=== PATIENT | male | born 1950 | race Caucasian/White ===

== ENCOUNTER 2017-06-30 13:15 | Outpatient (CLI) | payer MEDICARE, OTHER ==
--- NOTE | 2017-06-30 15:36 | MRI ---
EXAM: BRAIN MRI WITH AND WITHOUT CONTRAST 06/30/17 COMPARISON: 02/11/16. HISTORY: Brain tumor. Followup exam. Patient has a previous history of radiation. COMPARISON: 02/11/16, 09/26/15. TECHNIQUE: Brain MRI is performed with and without intravenous gadolinium administration. Multisequential, multi planar imaging is performed. FINDINGS: No hemorrhage on the axial gradient echo sequence. No periaortic mass, mass effect, or midline shift . Brain volume is age appropriate. Cortical smith-white matter differentiation is preserved. Ventricles and sulci are patent and asymmetric. Central arterial flow voids are maintained. No restri cted diffusion. Minimal mucosal thickening involving the paranasal sinuses. Adequate mastoid air cell aeration. Minimal white matter hyperintensity in the axial T2 and FLAIR sequence likely due to chronic small ve ssel ischemic change. No pathologic enhancement of the brain parenchyma. Stable 4 mm enhancement in the distal aspect of the left internal auditory canal. There is evidence o f a left sided vestibular schwannoma. IMPRESSION: Stable left sided vestibular schwannoma. POS: [facility]
== END 2017-06-30 13:16 | disposition home or self-care (01) ==
LOC: TBSIIMAG 13:15
PROVIDERS: ATTEND Neurological Surgery
DX: D49.6 Neoplasm of unspecified behavior of brain (principal); D33.3 Benign neoplasm of cranial nerves
CPT/HCPCS: 70553

== ENCOUNTER 2017-09-23 10:05 | Emergency (ER) | payer MEDICARE, OTHER ==
[2017-09-23] MEDS ORDERED: Lidocaine 1% w/Epinephrine 1:100K 30 ML VIAL ONE (10:21)
[2017-09-23] MEDS ORDERED: Adacel (T-DAP) 0.5 ML VIAL ONE (10:38)
== END 2017-09-23 10:57 | disposition home or self-care (01) ==
LOC: SCSER 10:05
DX: S61.412A Laceration without foreign body of left hand, initial encounter (principal); E03.9 Hypothyroidism, unspecified; E78.5 Hyperlipidemia, unspecified; I10 Essential (primary) hypertension; Z79.899 Other long term (current) drug therapy; W26.9XXA Contact with unspecified sharp object(s), initial encounter
CPT/HCPCS: 12001; 90471; 90715; J2001

== ENCOUNTER 2017-11-18 10:22 | Outpatient (CLI) | payer MEDICARE, OTHER ==
[2017-11-18 11:41] LABS: #Eosinphils 0.2 thou/uL (0.0-0.7); #Lymphocytes 2.2 thou/uL (1.20-3.40); #Monocytes 0.5 thou/uL (0.11-0.59); #Neutrophils 4.1 thou/uL (1.40-6.50); %Basophils 0.7 % (0.0-1.0); %Eosinophils 3.3 % (0.0-10.0); %Lymphocytes 30.9 % (21.0-51.0); %Monocytes 6.6 % (0.0-10.0); %Neutrophils 58.5 % (42.0-75.0); Hemoglobin 16.7 g/dL (14.0-18.0); Mean Corpuscular HGB CONC 34.3 g/dL (32.0-36.0); Mean Corpuscular Hemoglobin 32.3 pg (27.0-31.0); Mean Corpuscular Volume 94.2 fl (80.0-94.0); Mean Platelet Volume 6.5 fL (7.4-10.4); Platelet Count 248 thou/uL (130-400); RBC Distribution Width 12.2 % (11.5-14.5); Red Blood Cell (RBC) Count 5.15 mill/uL (4.70-6.10); White Blood Cell (WBC) Count 7.1 thou/uL (4.8-10.8)
== END 2017-11-18 10:23 | disposition home or self-care (01) ==
LOC: LABBT 10:22
PROVIDERS: ATTEND Orthopaedic Surgery Hand Surgery
DX: Z01.812 Encounter for preprocedural laboratory examination (principal); G56.20 Lesion of ulnar nerve, unspecified upper limb
CPT/HCPCS: 85025; 85652; 93005; 93010

== ENCOUNTER 2017-11-23 05:49 | Day surgery (SDC) | payer MEDICARE, OTHER ==
[2017-11-18 10:51] VITALS: BMI 26.9
[2017-11-23] MEDS ORDERED: Fentanyl 100 MCG/2 ML VIAL ONE (06:46)
[2017-11-23] MEDS ORDERED: HYDROmorphone 0.5 MG/0.5 ML SYRINGE ONE (06:46)
[2017-11-23] MEDS ORDERED: Bupivacaine PF 0.5% 30 ML VIAL ONE (06:48)
[2017-11-23] MEDS ORDERED: Bacitracin Zinc Ointment 30 gm TUBE ONE (06:48)
[2017-11-23] MEDS ORDERED: Betamet Acet/Betamet Na Ph 30 MG/5 ML VIAL ONE ×2 (06:48→07:43)
[2017-11-23] MEDS ORDERED: Dexamethasone 20 MG/5 ML VIAL ONE (06:51)
[2017-11-23] MEDS ORDERED: Metoclopramide HCl 10 MG/2 ML VIAL ONE (06:51)
[2017-11-23] MEDS ORDERED: PROPOFOL 200 MG/20 ML VIAL ONE (06:51)
[2017-11-23] MEDS ORDERED: Ondansetron HCl/PF 4 MG/2 ML Vial ONE (06:51)
[2017-11-23] MEDS ORDERED: Ketorolac Tromethamine 30 MG/ML VIAL ONE ×2 (06:51→10:19)
[2017-11-23] MEDS ORDERED: Lidocaine 1% PF 5 ML VIAL ONE (06:51)
[2017-11-23] MEDS ORDERED: CEFAZOLIN/Water 2 GM/20 ML SYRINGE ONE (06:58)
--- NOTE | 2017-11-23 16:34 | OP ---
PREOPERATIVE DIAGNOSES: 1. Left carpal tunnel syndrome. 2. Left cubital tunnel syndrome. FINDINGS: 1. Severe compression with flattening of 2.5 cm area of the ulnar nerve at just proximal cubital peter herb and underneath the flexor head. 2. 1 cm at the transcarpal ligament of the median nerve within the wrist. 3. Very thick olecranon bursa with straw-colored fluid. PROCEDURES PERFORMED: 1. Radical left elbow olecranon bursa. 2. Left ulnar nerve neuroplasty with submuscular transposition of the elbow, forearm and distal arm. 3. Acute carpal tunnel release. TOURNIQUET TIME: 90 minutes. INJECTABLE: Total of 30 mL 0.5%, 10 at the carpal tunnel site and 20 at the cubital tunnel site. SPECIMEN: Bursa to the lab. ESTIMATED BLOOD LOSS: 10 mL. COMPLICATIONS: None. INDICATIONS: A very dense cubital tunnel and carpal tunnel by exam with a stage II Fraser changes a nd very debilitating nighttime pain that responded to conservative treatment for over 9 months. DESCRIPTION OF PROCEDURE: After successful general LMA technique, the limb was prepped and draped. We then outlined the incision, standard carpal tunnel release incision, in line with Almendarez's cardina l line distally and four proximally, 5 mm distal to the volar flexion crease and medial lateral in li ne with the ring finger. We then outlined a midline incision that had a zigzag medially to avoid the olecranon tip. We injected each side with 10 mL before made incision, applied a sterile well-padded tourniquet high in the arm and then exsanguinated the limb. Tourniquet was inflated to 250 mmHg. First carpal tunnel was approached with standard incision listed above, carried through the skin and subcutaneous tissue. We identified the fascia just ulnar to the palmaris longus, and from the mid po rtion distally with self-retaining retractors. We released the transverse carpal ligament and spared the median nerve motor branch, which was a type 1 takeoff and visualized the primary sensory branche s, which were all intact. We then made a release using a combination of [place] blade and tenotomy sc issor from this point proximally through direct visualization as well. Placed 2 mL of Celestone here , closed with interrupted 4-0 nylon. We proceeded to the cubital tunnel site. We then used an incision that described above with me as outlined. Midline slightly medial at the ol ecranon tip care to skin and subcutaneous tissues, which were dissected to reach the medial epicondyl e. I immediately could see very thick olecranon bursa. Once we did identify ulnar nerve, we did a r adical olecranon bursectomy. There was straw colored fluid inside almost a 2 mm thick bursa. Then, we identified the ulnar nerve as high in the incision as possible, then began to release of the fasci a. Once we got to the true ligament over the cubital tunnel, 1 cm proximal to it indeed, we noticed flattening of the nerve about 50% loss of diameter. This continued through the canal into the flexor carpi ulnaris heads and then after we got past the branches, it flattened and dissipated. The nerve was completely released. We then dissected the nerve free from the muscle belly using one set of ve ssel clips to bring a vessel with it and once we had reached a point where it could be transposed ant erior to the medial epicondyle, we let it go back and is being rested, then we released intermuscular septum over 10 cm area from its insertion onto the posterior aspect of the medial epicondyle. We ma de a Z-lengthening of the flexor pronator origin/group, and then transposed the nerve into this area. I placed a 3 mL of Celestone along the nerve in this region. There was no undue tension. We close d it with interrupted #1 Ethibond using OS-4 needle in a [id number] pattern x6 stitches. There was no instability here to include no violation of the ulnar collateral ligament. The nerve was well protected and did not show tension through full passive range. We then closed the incision with a running 3-0 Monocryl, placed Steri-Strips, placed bulky dressing o n both sites, released the tourniquet, had excellent color and no bleeding. Splint was applied with the elbow at 75-80 degrees of flexion and the patient went to the operating room without evidence of anesthetic or operative complication.
== END 2017-11-23 12:05 | disposition home or self-care (01) ==
LOC: SDC 05:49
PROVIDERS: ATTEND Orthopaedic Surgery Hand Surgery
PROC: 01N50ZZ Release Median Nerve, Open Approach (ICD-10-PCS; principal; 2017-11-23)
PROC: 0MB40ZZ Excision of Left Elbow Bursa and Ligament, Open Approach (ICD-10-PCS; 2017-11-23)
PROC: 01N40ZZ Release Ulnar Nerve, Open Approach (ICD-10-PCS; 2017-11-23)
DX: G56.02 Carpal tunnel syndrome, left upper limb (principal); G56.22 Lesion of ulnar nerve, left upper limb; M70.22 Olecranon bursitis, left elbow; M75.20 Bicipital tendinitis, unspecified shoulder; M77.11 Lateral epicondylitis, right elbow; M19.011 Primary osteoarthritis, right shoulder; I10 Essential (primary) hypertension; E78.00 Pure hypercholesterolemia, unspecified; E03.9 Hypothyroidism, unspecified; Z79.899 Other long term (current) drug therapy
CPT/HCPCS: 88304; 96372; J0131; J0702; J1100; J1170; J1885; J2001; J2405; J2704; J2765; J3010; S0020

== ENCOUNTER 2018-04-11 11:44 | Outpatient (CLI) | payer MEDICARE, OTHER ==
--- NOTE | 2018-04-11 12:14 | RAD ---
TWO VIEWS RIGHT KNEE: Date: 04-11-18 Comparison: None. History: Primary osteoarthritis of the knee. FINDINGS: There is moderate medial compartment narrowing with associated osteophyte formation of the medial fem oral condyle and medial tibial plateau. There is mild patellofemoral joint space narrowing. There is no knee joint effusion, displaced fracture, or evidence of dislocation. IMPRESSION: No acute findings. POS: [facility]
--- NOTE | 2018-04-11 12:15 | RAD ---
TWO VIEWS LEFT KNEE: Date: 04-11-18 Comparison: None. History: Primary osteoarthritis of the knee. FINDINGS: Moderate medial compartment narrowing. No knee joint effusion, fracture, or dislocation. IMPRESSION: Medial compartment degenerative change with no acute osseous abnormality. POS: [facility]
== END 2018-04-11 11:45 | disposition home or self-care (01) ==
LOC: SCSRAD 11:44
PROVIDERS: ATTEND Internal Medicine
DX: M17.0 Bilateral primary osteoarthritis of knee (principal)

== ENCOUNTER 2018-04-29 09:12 | Outpatient (CLI) | payer MEDICARE, OTHER ==
[2018-04-29] MEDS ORDERED: Iopamidol 300 61% 50 ML VIAL FS ONE (09:30)
[2018-04-29] MEDS ORDERED: Lidocaine 1% (PF) 30 ML VIAL ONE (09:30)
[2018-04-29] MEDS ORDERED: Sodium Chloride 0.9% (PF) 10 ML VIAL ONE (09:30)
[2018-04-29] MEDS ORDERED: EPINEPHrine 1 MG/ML AMP ONE (09:30)
--- NOTE | 2018-04-29 15:56 | RAD ---
RIGHT SHOULDER ARTHROGRAM: 04/29/18 HISTORY: 67-year-old male with history of right shoulder pain. FLUOROSCOPY: 1.0 minute with a dose of 117.5 uGy*m2. Following informed consent, the right shoulder was prepped and draped using sterile technique. Local anesthetic was performed with 1% Xylocaine. A 22 gauge spinal needle was introduced into the anterior superior glenohumeral joint overlying the humeral head prosthesis. Approximately 15 mL of dilute iod inated contrast media was injected into the glenohumeral joint. Patient tolerated the procedure well and is moved to CT for followup CT. IMPRESSION: Successful right shoulder arthrogram. POS: [facility]
--- NOTE | 2018-04-29 16:30 | CT ---
RIGHT SHOULDER CT SCAN POST ARTHROGRAM CONTRAST: History: 67-year-old male with right shoulder pain. FINDINGS: Right shoulder arthroplasty changes are noted with metal humeral head prosthesis with extensive artif act considerably limiting the sensitivity of this study. Post-operative changes noted involving the g lenoid, scattered small low attenuation foci within the glenoid subchondral region as well as some fl attening and slight deformity of the glenoid. No evidence of extension of contrast media into the sub acromial bursa to suggest full thickness rotator cuff tear. There is marked fatty change and muscle v olume loss of the subscapularis muscle, particularly the superior aspect. The supraspinatus and infra spinatus muscles and deltoid muscle appear normal in volume. IMPRESSION: Post-operative total right shoulder replacement changes with metal humeral head prosthesis with exten sive artifact and some flattening and deformity of the glenoid. No evidence for a complete tear of th e supra or infraspinatus tendons or extension of contrast media into the subacromial subdeltoid bursa . Probable prior acromioplasty changes. Severe muscle volume loss of the superior aspect of the subsc apularis muscle with the remaining rotator cuff muscles within normal limits of attenuation and volum e. POS: [facility]
== END 2018-04-29 09:13 | disposition home or self-care (01) ==
LOC: RAD 09:12
PROVIDERS: ATTEND Orthopaedic Surgery
DX: M25.511 Pain in right shoulder (principal); Z96.611 Presence of right artificial shoulder joint
CPT/HCPCS: 23350; J0171; J2001